=== PATIENT | female | born 1990 | race African-American/Black ===

== ENCOUNTER 2022-07-05 08:31 | Emergency (ER) | payer MEDICAID, OTHER ==
[~2022-07-05] VITALS: Ht 165.1 cm; Wt 79.0 kg
[~2022-07-05 08:31] MED LIST: MICO45CR75
[2022-07-05 08:41] VITALS: BP 129/85
[2022-07-05] MEDS ORDERED: IBUPROFEN 400MG TABLET PO ONE (10:15)
[2022-07-05] MEDS ORDERED: ACETAMINOPHEN 325MG TABLET PO ONE (10:15)
[2022-07-05] MEDS ORDERED: ACET-2708 MT (11:45)
== END 2022-07-05 12:00 | disposition home or self-care (01) ==
LOC: ER 08:31
DX: S93.492A Sprain of other ligament of left ankle, initial encounter (principal); X58.XXXA Exposure to other specified factors, initial encounter; Y93.44 Activity, trampolining; Y92.89 Other specified places as the place of occurrence of the external cause; Y99.8 Other external cause status
CPT/HCPCS: 29515; 73610; 73630; 99284; Z7610